=== PATIENT | female | born 1935 | race Caucasian/White ===

== ENCOUNTER 2021-08-17 08:48 | Outpatient (CLI) | payer MEDICARE, BC, SELFPAY ==
--- NOTE | ~2021-08-17 | CT_ITS ---
EXAMINATION: CT diagnostic chest wo con DATE: 08/17/2021 10:28 INDICATION: Lung nodule, shortness of breath TECHNIQUE: Computed tomography (CT) of the chest was performed without intravenous contrast. The dose -length product (DLP) was 69.18 mGy-cm. Automated exposure control and iterative reconstruction techn ique were employed. COMPARISON: 01/12/2012 FINDINGS: There is a stable 5 mm nodule of the right middle lobe. A stable 7 mm nodule is present lef t upper lobe. There is a 6 mm nodule in the superior segment left lower lobe not definitely identifie d on the prior examination. A 3 mm nodule superior segment right lower zone also new since the prior examination. The lungs are free of focal airspace opacities. There is no pleural effusion or pneumoth orax. No pathologically enlarged thoracic lymph nodes are identified. The heart size is normal. Cysts of the visualized liver measure up to 4.4 cm in the left hepatic lobe. Nonobstructing stones of the right kidney measure up to 7 mm. There is chronic moderate left hydronephrosis. There is mild thoraci c spondylosis. IMPRESSION: 1. Multiple lung nodules likely reflecting old granulomatous disease, some stable since the compariso n examination, and some new. If the patient has no risk factors for malignancy, no further follow up is required. If there are risk factors for malignancy (i.e., history of smoking, asbestos or radiati on exposure), consider followup CT in 12 months. Reviewed, dictated and finalized at location A. ING ASSISTANT IMPRESSION: 1. Multiple lung nodules likely reflecting old granulomatous disease, some stab le since the comparison examination, and some new. If the patient has no risk f actors for malignancy, no further follow up is required. If there are risk fac tors for malignancy (i.e., history of smoking, asbestos or radiation exposure), consider followup CT in 12 months.
--- NOTE | 2021-08-17 12:29 | WPDSIXMINUTE ---
Six Minute Walk Procedure Procedure Performed Pulmonary Stress Test (6 min walk) Six Minute Walk This is a 6 minute walk test. The test was performed and interpreted in accordance with the 2014 ERS/ATS task force guidelines. Findings: The patient's resting room air oxygen saturation measured by pulse oximetry was 97% and heart rate was 72 bpm. Patient ambulated for 396 meters and oxygen saturation remained 93 to 95%. Heart rate at the end of the study was 82 bpm. The patient did not qualify for supplemental oxygen at rest or with ambulation. There are no prior studies for comparison.
--- NOTE | 2021-08-17 12:31 | WPDPFTINT ---
PFT Procedure Performed PFT Procedure Performed Plethysmography (Lung Vol) Diffusing Cap (DLCO) Flow Vol Loop Spirometry w/o Bronchodil PFT Interpretation This is a pulmonary function test with spirometry, plethysmography and diffusing capacity. The test was performed and results interpreted in accordance with the 2019 and 2005 ATS/ERS Task Force guidelines respectively using the Global Lung Function Initiative-2012 reference equations. Patient demonstrated good effort and cooperation. Reproducibility criteria were met. The quality of the spirometry maneuver was Grade A. Of note the patient had difficulty with the testing but did demonstrate good effort. Patient declined albuterol at this time due to shakiness caused by this medicine. Findings: Spirometry: There is decreased maximal expiratory airflow at all lung volumes with concave expiratory flow tracing. The FVC is 1.44 L, 76% predicted. The FEV1 is 0.67 L, 46% predicted. The FEV1: FVC ratio is 46%. Plethysmography: The total lung capacity is 6.01 L, 145% predicted. The functional residual capacity is 4.98 L, 210% predicted. The residual volume is 4.57 L, 207% predicted. Diffusing capacity: The absolute diffusion capacity is 6.6, 40% predicted. The diffusing capacity corrected for alveolar volume is 3.46, 80% predicted. Impression: There is a severe obstructive abnormality. The increase in residual volume is consistent with air trapping from an obstructive abnormality. Hyperinflation is present is demonstrated by the increase in functional residual capacity and total lung capacity and is consistent with an obstructive abnormality. The absolute diffusing capacity is moderately decreased and normalizes when corrected for alveolar volume. There are no prior studies for comparison
== END 2021-08-17 08:49 | disposition home or self-care (01) ==
PROVIDERS: PCP Family Medicine; Visit Provider Internal Medicine Pulmonary Disease
DX: J44.9 Chronic obstructive pulmonary disease, unspecified (principal); R91.8 Other nonspecific abnormal finding of lung field
CPT/HCPCS: 71250; 94375; 94618; 94726; 94729

== ENCOUNTER 2022-04-19 14:39 | Outpatient (CLI) | payer MEDICARE, BC, SELFPAY ==
[2022-04-19 14:35] VITALS: PULSE 80; O2SAT 95
[2022-04-19 14:40] VITALS: PULSE 97; O2SAT 87
[2022-04-19 14:45] VITALS: PULSE 96; O2SAT 88
[2022-04-19 14:50] VITALS: PULSE 98; O2SAT 91
[2022-04-19 15:05] VITALS: PULSE 82; O2SAT 95
--- NOTE | 2022-04-19 15:07 | HOMEO2EVAL ---
Evaluation was performed at [facility] Home Oxygen Evaluation RC: Home Oxygen (O2) Evaluation Start: 04/19/22 15:04 Freq: Status: Active Protocol: RPE Activity Type Activity Date Activity User E-sign Co-sign Detail Recorded Client Recorded Date Recorded By Document 04/19/22 14:35 [email or web address] [email or web address] 04/19/22 15:07 DJO Document 04/19/22 14:40 [email or web address] [email or web address] 04/19/22 15:07 DJO Document 04/19/22 14:45 [email or web address] [email or web address] 04/19/22 15:07 DJO Document 04/19/22 14:50 [email or web address] [email or web address] 04/19/22 15:07 DJO Document 04/19/22 15:05 [email or web address] [email or web address] 04/19/22 15:07 DJO 04/19/22 04/19/22 04/19/22 14:35 14:40 14:45 Home O2 Evaluation Test Phase Resting Exercise Exercise Oxygen Delivery Room Air Room Air Nasal Cannula Oxygen Flow Rate (L/min) 1 Pulse Oximetry (90-100 %) 95 87 L 88 L Pulse Rate (60-100 beats/min) 80 97 96 Activity Tolerance Ambulation Distance (feet) Ambulation Distance (meters) Treatment Charges O2 Evaluation - Outpatient 04/19/22 04/19/22 14:50 15:05 Home O2 Evaluation Test Phase Exercise Resting Oxygen Delivery Nasal Cannula Room Air Oxygen Flow Rate (L/min) 2 Pulse Oximetry (90-100 %) 91 95 Pulse Rate (60-100 beats/min) 98 82 Activity Tolerance Good Ambulation Distance (feet) 400 Ambulation Distance (meters) 121.91 Treatment Charges
== END 2022-04-19 14:40 | disposition home or self-care (01) ==
LOC: ANHPFT 14:40
PROVIDERS: PCP Family Medicine; Visit Provider Internal Medicine Pulmonary Disease
DX: R06.02 Shortness of breath (principal)
CPT/HCPCS: 94618

== ENCOUNTER 2022-05-04 13:43 | Outpatient (CLI) | payer MEDICARE, BC, SELFPAY ==
--- NOTE | ~2022-05-04 | CT_ITS ---
EXAMINATION: CT abdomen pelvis wo con DATE: 05/04/2022 14:31 INDICATION: Right-sided abdominal pain. Kidney stone. TECHNIQUE: Computed tomography (CT) of the abdomen and pelvis was performed without intravenous contr ast. Automated exposure control and iterative reconstruction technique were employed. Exam dose: 154 .81 mGy-cm total exam DLP. COMPARISON: 09/11/2017 CT abdomen pelvis 05/04/2022 KUB FINDINGS: Mild chronic discoid scarring at the lung bases. There is interval mild nodular appearing i nfiltrate at the posterolateral left lung base, left lower lobe. Heart size is within upper limits of normal. No pericardial or pleural effusion. At least 5 hepatic cysts are noted, the largest measuring up to 4.4 cm. Normal splenic size. No pancreatic mass lesion, calcification or ductal dilatation. The gallbladder appears unremarkable. No bile duct dilatation. Normal morphology of the adrenal glands. There is scarring and volume loss of the right kidney consistent with chronic pyelonephritis. There a re 4 nonobstructing right renal calculi, measuring up to approximately 5.7 x 4.7 x 8.2 mm Lower pole left renal approximately 2.6 x 6.7 mm calculus. Left internal urinary stent is noted, the proximal coil in the left renal pelvis, the distal coil at the right superolateral aspect of the urinary bladder. There is a Parks catheter in the bladder. The bladder is evacuated otherwise. No apparent left ureteral or right ureteral calculus. No hydronephrosis. There is atherosclerotic calcification of the abdominal aorta and iliac arteries. No intraperitoneal or retroperitoneal or pelvic mass lesion or adenopathy or ascites is noted. There is osteopenia. There is degenerative change at the apophyseal joints with associated grade 1 anterolisthesis at L4-5 . Bilateral hip osteoarthritis. IMPRESSION: Bilateral nonobstructive nephrolithiasis Left internal urinary stent Hepatic cysts Chronic right pyelonephritis Reviewed, dictated and finalized at Location A. Reviewed, dictated and finalized at location B.
--- NOTE | ~2022-05-04 | XR_ITS ---
EXAMINATION: XR abdomen/kub 1V DATE: 05/04/2022 14:44 INDICATION: Calculus of kidney. TECHNIQUE: A supine view of the abdomen was obtained. COMPARISON: CT abdomen and pelvis 05/04/2022 FINDINGS: There are no dilated loops of bowel. There is a left internal ureteral stent in expected po sition. There are phleboliths in the pelvis. There are phleboliths in the ovarian veins. There are mu ltiple stones in right kidney measuring up to 6 mm. IMPRESSION: 1. Right kidney stones. 2. Left internal ureteral stent in expected position. Reviewed, dictated and finalized at location A.
== END 2022-05-04 13:44 | disposition home or self-care (01) ==
LOC: ANHIMG 13:46
PROVIDERS: PCP Family Medicine; Visit Provider Urology
DX: N20.0 Calculus of kidney (principal); K76.89 Other specified diseases of liver
CPT/HCPCS: 74018; 74176

== ENCOUNTER 2022-05-25 00:58 | Day surgery (SDC) | payer MEDICARE, BC, SELFPAY ==
[2022-05-19 12:54] VITALS: BMI 24.8
--- NOTE | 2022-05-19 12:55 | PC.NURSE ---
Report to the Outpatient Waiting Room, entrance under the green pavilion located off [facility], at time _0715_ on date _[id number]_. OR Time: _0915_. Time changes happen often and if your time is changed the preop area will call you the afternoon before. - You and your visitor will be asked to self-screen and do not enter if you have any COVID symptoms. - Only one visitor and NO children visitors are allowed at this time. - The patient visitor is requested to leave or wait in car when not with patient due to restrictions. - A mask is required within the hospital. Patients may have clear liquids (water, carbonated beverages, clear teas, apple juice) until 3 hours prior to surgery with a maximum of 20 ounces. - No food from midnight until time of surgery Take the following medications with a SIP of water the morning of surgery: __Inhalers and eye drops only, no pills. Medications to discontinue per physician ____All vitamins Date to take last [id number]__[id number] Please no make-up, nail mauritanian, hairspray, perfume, deodorant, or body powder the day of surgery. No jewelry (including any body piercings) or valuables the day of surgery, leave them at home. Please take a shower or bath the night before, or the morning of, surgery with an antibacterial soap. Wear comfortable, loose fitting clothing. - Jewelry must be removed prior to entering the operating room. Rings and piercings that are not removed may be cut off. - The hospital will not accept responsibility for valuables. - Please leave all valuables, including medications, at home the day of surgery. If you are going home after surgery, a licensed screw driver operator must drive you home. - NO public transportation without another adult. - We recommend that an adult stay with you for 24 hours following discharge. - We also recommend that you do not drive, make important decision, drink alcoholic beverages, or take any drugs that were not prescribed by your health care provider for at least 24 hours after your discharge time. Follow any additional instructions given to you from your surgeon. If you or anyone in your household have experienced Covid symptoms in the past week, please notify your surgeon or the nurse liaison at the phone number below for possible testing. Telephone instructions given to __Patient___and asked if any additional questions and then verbalized understanding. Patient advised to call surgeon office or pre surgery nurse liaison [phone] if any additional questions.
--- NOTE | ~2022-05-25 | XR_ITS ---
EXAMINATION: XR retrograde pyelo w/stent LT DATE: 05/25/2022 10:04 INDICATION: TECHNIQUE: Fluoroscopic images from a left internal ureteral stent placement are submitted for review . 62 seconds of fluoroscopy time. 102 fluoroscopic images. FINDINGS: Comparison to 09/27/2017 Initial images from retrograde pyelogram demonstrate narrowing at the expected location of the left U PJ. There is a left double-J internal ureteral stent projecting in expected position, with proximal C ope loop at the level of the renal pelvis and distal loop in the pelvis within the bladder lumen. IMPRESSION: 1. Left internal ureteral stent placement. Possible left UPJ obstruction. Please refer to real-time procedural findings for details. Reviewed, dictated and finalized at location A. IMPRESSION: 1. Left internal ureteral stent placement. Possible left UPJ obstruction. Plea se refer to real-time procedural findings for details.
--- NOTE | 2022-05-25 06:27 | ECG_ITS ---
Measurements Intervals [place] Rate: 68 P: 52 AL: 194 QRS: 19 QRSD: 152 T: 28 QT: 457 QTc: 487 Interpretive Statements SINUS RHYTHM RIGHT BUNDLE BRANCH BLOCK BASELINE ARTIFACT- I, II, III, AVR, AVL, AVF ABNORMAL ECG NO PREVIOUS ECG AVAILABLE FOR COMPARISON Electronically Signed On 05-25-2022 8:01:53 CDT by Keny Lovell D.O.
--- NOTE | 2022-05-25 06:44 | WPDHPUPDATE1 ---
History and Physical Update Update Date/Time: 05/25/22 06:44 History and Physical has been reviewed, including an updated exam of the patient. There are NO changes in the patient's condition. Risks, benefits, and alternatives have been discussed and questions answered. Patient agrees to proceed with procedure.
[2022-05-25 08:23] VITALS: BP 132/77; PULSE 80; RESP 14; TEMP 36.2; O2SAT 97
[2022-05-25] MEDS: LACTATED RINGERS 1,000 ML 30 ML IV CONT (08:28)
--- NOTE | 2022-05-25 08:44 | WPDANESEPPF ---
Anes - Initial Pre Proc Eval Procedure: Operation Date: 05/25/22 09:15 Proposed Procedures p Cystoscopy, Left Retrograde Pyelography, Left Ureteroscopy, with Balloon Dilation of Urethral Stricture - Warner Gauthier MD Date/Time: 05/25/22 08:44 Surgeon: Warner Gauthier MD Pre Op Diagnosis: calculus of kidney , upj obstruction Patient Data Age: 86 Gender: F Height: 1.47 m Weight: 55.2 kg Last Vital Signs Temp 36.2 C L 05/25/22 08:23 Pulse 80 05/25/22 08:23 Resp 14 05/25/22 08:23 BP 132/77 05/25/22 08:23 Pulse Ox 97 05/25/22 08:23 O2 Del Method Room Air 05/25/22 08:23 Allergies Allergy/AdvReac Type Severity Reaction Status Date / Time Iodinated Contrast Media Allergy Unknown Rash Verified 05/25/22 08:38 Sulfa (Sulfonamide Allergy Unknown Nausea Verified 05/25/22 08:38 Antibiotics) ioversol AdvReac Unknown shortness Verified 05/25/22 08:38 of breath Contrast Media Allergy Intermediate HIVES Uncoded 05/19/22 12:39 Home Medications Medication Instructions Recorded Confirmed Type latanoprost 0.005 % eye drops 1 drop ophthalmic (eye) .at 08/18/19 05/19/22 Rx (Xalatan) bedtime #2.5 mL cholecalciferol (vitamin D3) 10 10 mcg PO DAILY 05/28/20 05/19/22 History mcg (400 unit) tablet ibuprofen 400 mg tablet 400 mg PO Q6H PRN Pain 05/28/20 05/19/22 History vit C 250 mg-vit E 90 mg-zinc 40 1 tablet PO BID 05/28/20 05/19/22 History mg-copper 1 lb-lwxrdl-zfgtih capsule (PreserVision AREDS-2) potassium chloride 20 mEq 40 meq PO DAILY #180 tabs 06/15/20 05/19/22 Rx tablet,extended release furosemide 40 mg tablet See Rx Instructions .Route 07/16/20 05/19/22 Rx .COMPLEX #90 tabs rosuvastatin 20 mg tablet (Crestor) 20 mg PO DAILY 90 days #90 tabs 10/21/20 05/19/22 Rx denosumab 60 mg/mL subcutaneous 60 mg subcut [id number] #1 mL 11/26/20 05/19/22 Rx syringe (Prolia) aspirin 81 mg tablet,delayed 81 mg PO DAILY 07/12/21 05/19/22 History release (Adult Aspirin Regimen) Spiriva with HandiHaler 18 mcg and 1 cap inhalation DAILY #30 04/07/22 05/19/22 Rx inhalation capsules (tiotropium inhalations bromide) fluticasone 250 mcg-salmeterol 50 1 inh inhalation BID #60 ea 04/07/22 05/19/22 Rx mcg/dose blistr powdr for inhalation (Advair Diskus) levalbuterol HCl 1.25 mg/3 mL 1.25 mg (3 mL) inhalation Q4H PRN 04/07/22 05/19/22 Rx solution for nebulization shortness of breath or wheezing #90 mL peg 400-propylene glycol 0.4 %-0.3 1 drp EACH EYE DAILY PRN Dry Eyes 04/07/22 05/19/22 History % eye drops (Systane Ultra) timolol 0.5 % eye drops 1 drp EACH EYE Q12H 04/07/22 05/19/22 History ondansetron 4 mg disintegrating 4 mg PO Q8H PRN Nausea 05/19/22 05/19/22 History tablet Patient hx anesthesia problems: none Family hx anesthesia problems: none Results Review: All pre-operative results and documents have been reviewed as part of the pre-operative evaluation. [facility] Past Medical History Medical History Abnormal mammogram of right breast Allergic rhinitis, unspecified Aortic ectasia, thoracic Back pain due to inflammatory process Bronchitis Chronic diastolic heart failure COPD mixed type Glaucoma Hydronephrosis of left kidney Kidney stone Mixed hyperlipidemia Multiple lung nodules on CT Multiple subsolid lung nodules less than 6 mm in diameter Nocturnal hypoxemia Normal eye exam 06/07/2020 Dr. Lam Osteopenia Osteoporosis, unspecified Pneumonia Vitamin D deficiency, unspecified Surgical History Surgical History H/O: hysterectomy History of appendectomy Family History Family History Sibling Acute myocardial infarction, Onset Age: 80 Lung cancer Mother Cancer of kidney Father Congestive heart failure Social History Social Histo
[2022-05-25] MEDS: ceFAZolin 2 GM/D5W 50 ML 2 GM/50 ML BAG IVPB (09:23)
[2022-05-25] MEDS: LIDOCAINE HCL 2% GEL UROJET 10 ML PKG MUCOUS MEM (09:23)
[2022-05-25 10:08] VITALS: BP 97/57; PULSE 73; RESP 16; O2SAT 98
--- NOTE | 2022-05-25 10:11 | W.PM.PROC2 ---
Procedure Note - Detailed Date of Procedure 05/25/22 Pre-op Diagnosis Left UPJ obstruction Post-op Diagnosis Same Procedure Performed Cystoscopy, left ureteral stent removal, left retrograde pyelography, left ureteroscopy with ureteral balloon dilatation and left ureteral stent replacement Surgeon Warner Gauthier MD Description of Procedure patient is brought the operative suite she was prepped draped in routine sterile fashion while in dorsal lithotomy position. 2% xylocaine jelly was introduced intraurethrally and systemic sedation is administered per the anesthesia department. Cystoscopy is undertaken with a 19 F rigid cystoscope. The tip of the indwelling stent is grasped and removed. Left retrograde pyelography was obtained throughout 8 F bulb tip catheter. There again appears to be a short strictured area at the ureteropelvic junction/proximal ureter. This measures approximately 1-2 cm in length. I did do left ureteroscopy with a flexible ureteral scope. There was concentric narrowing without any mucosal abnormalities at all. Renal pelvis was endoscopically normal as was the remainder of ureter. I dilated this narrowed area with a 10 cm balloon at 15 atmospheres for 4 minutes. I then placed a 6 F variable length stent with the proximal coil in the renal pelvis and distal coil in the bladder. Scopes and wires removed. The patient tolerated the procedure well was taken recovery room in good condition. Drains Yes Packing No Pathology Yes Complications No immediate complications Condition Stable
[2022-05-25 10:30] VITALS: BP 100/58; PULSE 68; RESP 16; O2SAT 98
[2022-05-25 11:00] VITALS: BP 107/65; PULSE 71; RESP 16; O2SAT 98
[2022-05-25 11:30] VITALS: BP 98/57; PULSE 68; RESP 16; O2SAT 98
== END 2022-05-25 11:48 | disposition home or self-care (01) ==
PROVIDERS: PCP Family Medicine; Visit Provider Urology
PROC: (CPT 52352; principal; 2022-05-25 09:15)
DX: N13.5 Crossing vessel and stricture of ureter without hydronephrosis (principal); J44.9 Chronic obstructive pulmonary disease, unspecified; I50.32 Chronic diastolic (congestive) heart failure; I77.810 Thoracic aortic ectasia; M81.0 Age-related osteoporosis without current pathological fracture; H40.9 Unspecified glaucoma; E55.9 Vitamin D deficiency, unspecified; Z87.891 Personal history of nicotine dependence; Z79.82 Long term (current) use of aspirin; Z79.51 Long term (current) use of inhaled steroids; Z79.899 Other long term (current) drug therapy
CPT/HCPCS: 52332; 74420; 88108; 93005; C1726; C1758; C1769; C2617; J0690; J1100; J2370; J2405; J2704; J3010; J7120; Q9966

== ENCOUNTER 2022-08-16 12:42 | Outpatient (CLI) | payer MEDICARE, BC, SELFPAY ==
[2022-08-16] VITALS (7 sets, daily range): PULSE 55–71; O2SAT 87–94
--- NOTE | 2022-08-16 13:42 | HOMEO2EVAL ---
Evaluation was performed at [facility] Home Oxygen Evaluation RC: Home Oxygen (O2) Evaluation Start: 08/16/22 13:37 Freq: Status: Active Protocol: RPE Activity Type Activity Date Activity User E-sign Co-sign Detail Recorded Client Recorded Date Recorded By Document 08/16/22 12:50 PK [email or web address] 08/16/22 13:42 PKH Document 08/16/22 12:55 PKH [email or web address] 08/16/22 13:42 PKH Document 08/16/22 13:10 PKH [email or web address] 08/16/22 13:42 PKH Document 08/16/22 13:15 PKH [email or web address] 08/16/22 13:42 PKH Document 08/16/22 13:20 PKH [email or web address] 08/16/22 13:42 PKH Document 08/16/22 13:30 PK [email or web address] 08/16/22 13:42 PKH Document 08/16/22 13:40 PKH [email or web address] 08/16/22 13:42 PKH 08/16/22 08/16/22 08/16/22 12:50 12:55 13:10 Home O2 Evaluation [Oxygen] -Test Phase Resting Exercise Exercise -Oxygen Delivery Room Air Room Air Room Air -Oxygen Flow Rate (L/min) [Pulse Oximetry] -Pulse Oximetry (90-100 %) 94 93 89 L [Pulse Rate] -Pulse Rate (60-100 beats/min) 71 63 55 L [Evaluation] -Activity Tolerance Good [Charges] -Treatment Charges O2 Evaluation - Outpatient 08/16/22 08/16/22 08/16/22 13:15 13:20 13:30 Home O2 Evaluation [Oxygen] -Test Phase Exercise Exercise Exercise -Oxygen Delivery Room Air Nasal Cannula -Oxygen Flow Rate (L/min) 1 1 [Pulse Oximetry] -Pulse Oximetry (90-100 %) 87 L 92 92 [Pulse Rate] -Pulse Rate (60-100 beats/min) 71 69 69 [Evaluation] -Activity Tolerance [Charges] -Treatment Charges 08/16/22 13:40 Home O2 Evaluation [Oxygen] -Test Phase Resting -Oxygen Delivery Room Air -Oxygen Flow Rate (L/min) [Pulse Oximetry] -Pulse Oximetry (90-100 %) 94 [Pulse Rate] -Pulse Rate (60-100 beats/min) 71 [Evaluation] -Activity Tolerance [Charges] -Treatment Charges
--- NOTE | 2022-08-16 13:43 | PCRCNOTE ---
PATIENT REQUIRES 1 LPM WITH ACTIVITY AND ROOM AIR AT REST.
--- NOTE | 2022-08-16 14:17 | PCRCNOTE ---
PATIENT REQUIRES 1LPM WITH ACTIVITY AND ROOM AIR AT REST
== END 2022-08-16 12:43 | disposition home or self-care (01) ==
LOC: ANHPFT 12:43
PROVIDERS: PCP Family Medicine; Visit Provider Internal Medicine Pulmonary Disease
DX: Z87.891 Personal history of nicotine dependence (principal)
CPT/HCPCS: 94618